=== PATIENT | female | born 2000 ===

== ENCOUNTER → 2022-02-05 | Emergency (ER) | payer OTHER ==
[~2022-02-05] VITALS: Ht 165.1 cm; Wt 54.4 kg
[~2022-02-05] MED LIST: CENTANY30 GM TOP; CEPHALEXIN500 MG PO
== END | disposition home or self-care (01) ==
LOC: EMR PED 01:51 → ER 01:51
DX: S60.312A Abrasion of left thumb, initial encounter (principal); W45.8XXA Other foreign body or object entering through skin, initial encounter; Y93.89 Activity, other specified; Y92.69 Other specified industrial and construction area as the place of occurrence of the external cause